=== PATIENT | female | born 1965 | race Caucasian/White ===

== ENCOUNTER 2017-01-02 07:13 | Emergency (ER) | payer OTHER ==
[2017-01-02 07:28] VITALS: BP 138/74; PULSE 85; TEMP 98.2; BMI 19.6
--- NOTE | 2017-01-02 07:59 | PDOC ---
History of Present Illness - General Chief Complaint: Cold Symptoms Stated Complaint: COUGHING/CONGESTION IN HEAD Time Seen by Provider: 01/02/17 07:37 History Source: Patient Exam Limitations: No Limitations - History of Present Illness Initial Comments: 01/02/17 07:54 51-year-old female otherwise healthy presents to the ED with complaints of nasal congestion, cough, sore throat, thick mucus, and difficulty breathing secondary to mucus for the past 3 days. Patient denies fever, chills, shortness of breath, change in appetite, change in activity. Patient denies recent travel , recent sick contacts. Patient denies smoking history. Timing/Duration: reports: other (3 days) Possible Cause: Yes: no prior episodes Associated Symptoms: reports: cough, nasal congestion, sore throat Past History - Past Medical History Allergies/Adverse Reactions: Allergies Allergy/AdvReac Type Severity Reaction Status Date / Time No Known Allergies Allergy Verified 01/02/17 07:21 Home Medications: Ambulatory Orders Albuterol Sulfate Inhaler - [Ventolin HFA Inhaler -] 1 - 2 inh PO Q4H PRN #1 inhaler 01/02/17 Azithromycin [Zithromax Tri-Rafael (3 DAYS) -] 500 mg PO DAILY #3 tablet 01/02/17 Fluticasone Prop 0.05% Nasal [Flonase -] 1 - 2 spray NS BID #1 spray.pump - Surgical History Abdominal Surgery: (uterine polyp removed) - Psycho/Social/Smoking Cessation Hx Suicidal Ideation: No Smoking History: Never smoked Information on smoking cessation initiated: No Hx Alcohol Use: No Drug/Substance Use Hx: No Substance Use Type: None Patient Lives Alone: No Respiratory Specific PMHX - Complaint Specific PMHX Bronchitis: No Pneumonia: No Review of Systems - Review of Systems Able to Perform ROS?: Yes Constitutional: No: Symptoms Reported HEENTM: Yes: Nose Congestion, Throat Pain Respiratory: Yes: Cough, Productive cough (yellowish phlegm) Cardiac (ROS): No: Symptoms Reported ABD/GI: No: Symptoms Reported Integumentary: No: Symptoms Reported Neurological: No: Headache *Physical Exam - Vital Signs Last Vital Signs Temp Pulse Resp BP Pulse Ox 98.2 F 85 18 138/74 97 01/02/17 07:20 01/02/17 07:20 01/02/17 07:20 01/02/17 07:20 01/02/17 07:20 - Physical Exam General Appearance: Yes: Nourished, Appropriately Dressed. No: Apparent Distress HEENT: positive: EOMI, KATIE, TMs Normal, Pharynx Normal, Nasal Congestion ( boggy and edematous turbinates bilateral). negative: Rhinorrhea, Sinus Tenderness Neck: positive: Supple. negative: Lymphadenopathy (R), Lymphadenopathy (L) Respiratory/Chest: positive: Lungs Clear, Normal Breath Sounds. negative: Respiratory Distress, Accessory Muscle Use Cardiovascular: positive: Regular Rhythm, Regular Rate. negative: Murmur Integumentary: positive: Normal Color, Warm, Moist Neurologic: positive: Motor Strength 5/5 (ambulatory) Medical Decision Making - Medical Decision Making 01/02/17 07:56 Patient with URI symptoms concerning for bronchitis versus nasal congestion. Patient will be given medication for both. Patient also be recommended to take Claritin for nasal congestion and [id number] Robitussin or Mucinex for cough control and to break up secretions. *DC/Admit/Observation/Transfer Diagnosis at time of Disposition: Nasal congestion, Bronchitis - Discharge Dispostion Disposition: HOME Condition at time of disposition: Good - Prescriptions Prescriptions: Fluticasone Prop 0.05% Nasal [Flonase -] 1 - 2 spray NS BID #1 spray.pump Albuterol Sulfate Inhaler - [Ventolin HFA Inhaler -] 1 - 2 inh PO Q4H PRN #1 inhaler PRN Reason: Wheezing Azithromycin [Zithromax Tri-Rafael (3 DAYS) -] 500 mg PO DAILY #3 tablet - Patient Instructions Printed Discharge Instructions: DI for Nasal Congestion, DI for Cough -- Adult , DI for Acute Bronchitis Additional Instructions: Please drink plenty of fluids. Keep nasal passages clear. May take Motrin or Tylenol if you develop discomfort or fever. Please use [id number] Robitussin or Mucinex for cough control. You may also take Claritin 10 mg if the nasal spray is not sufficient for nasal congestion. Otherwise take medication as I prescribed to you.
== END 2017-01-02 08:01 | disposition home or self-care (01) ==
LOC: JER 07:13
DX: J40 Bronchitis, not specified as acute or chronic (principal)
CPT/HCPCS: 99282-25

== ENCOUNTER 2024-08-02 16:52 | Inpatient (IN) | payer OTHER ==
[2024-08-02 17:56] LABS: VENOUS BASE EXCESS 2.4 mmol/L (-2-2); VENOUS O2 SATURATION 38.2 % (70-80); VENOUS PCO2 42.9 mmHg (38-52); VENOUS PH 7.421 (7.310-7.410)
[2024-08-02 18:02] LABS: HEMATOCRIT 41.4 % (32.4-45.2); HEMOGLOBIN 14.3 GM/dL (10.7-15.3); MCHC 34.5 g/dl (32.0-36.0); MEAN CELL VOLUME 95.8 fl (80-96); MEAN PLT VOLUME 9.4 fl (7.5-11.1); PLATELET COUNT 315 10^3/uL (134-434); RBC 4.32 M/mm3 (3.60-5.2); RDW 17.8 % (11.6-15.6); WHITE BLOOD COUNT 7.1 K/mm3 (4.0-10.0)
[2024-08-02 18:23] LABS: INR 1.3 (0.83-1.09); PROTHROMBIN TIME (PATIENT) 14.6 SEC (9.7-13.0)
[2024-08-02 18:26] LABS: ACTIVATED PTT 28.5 SECONDS (25.2-36.5)
[2024-08-02 18:28] LABS: POTASSIUM 5.7 mmol/L (3.5-5.1)
[2024-08-02 18:29] LABS: CALCIUM 10.4 mg/dL (8.5-10.1)
[2024-08-02 18:30] LABS: BLOOD UREA NITROGEN 20.7 mg/dL (7-18); MAGNESIUM 2.5 mg/dL (1.8-2.4)
[2024-08-02 18:33] LABS: CREATININE 0.9 mg/dL (0.55-1.3)
[2024-08-02 18:35] LABS: BILIRUBIN,TOTAL 10.5 mg/dL (0.2-1); TOT PROT 6.6 g/dl (6.4-8.2)
[2024-08-02] MEDS ORDERED: oxyCODONE HCL 5 MG TABLET ONE (18:37)
[2024-08-02 18:38] LABS: N-TERMINAL BNP 296.7 pg/ml (5-125)
[2024-08-02] MEDS: oxyCODONE HCL 5 MG TABLET PO ONE (18:42)
[2024-08-02 18:57] LABS: ANISOCYTOSIS 3+; MACROCYTOSIS 3+
[2024-08-02] MEDS ORDERED: oxyCODONE HCL 5 MG TABLET PO PRN ×2 (20:10→22:38)
[2024-08-02 20:18] LABS: POTASSIUM 5.4 mmol/L (3.5-5.1)
[2024-08-02 20:20] LABS: BLOOD UREA NITROGEN 19.9 mg/dL (7-18); CALCIUM 9.9 mg/dL (8.5-10.1)
[2024-08-02 20:24] LABS: CREATININE 0.8 mg/dL (0.55-1.3)
[2024-08-02] MEDS ORDERED: MORPHINE SULFATE 2 MG/ML SYRINGE IVPUSH PRN ×2 (20:36→22:38)
[2024-08-02] MEDS ORDERED: ONDANSETRON 4 MG/2 ML VIAL IVPUSH PRN (20:48)
[2024-08-02] MEDS ORDERED: GLYCERIN 1 RECTAL SUPPOSITORY, ADULT RC PRN (21:25)
[2024-08-02] MEDS ORDERED: HYDROmorphone HCl 2 MG/ML VIAL ONE (21:30)
[2024-08-02] MEDS: HYDROmorphone HCl 2 MG/ML VIAL IVPUSH ONE (21:34)
[2024-08-02] MEDS ORDERED: LACTULOSE 20 GM/30 ML UDC (FOR ORAL USE ONLY) PO SCH (22:00)
[2024-08-03] MEDS: DOCUSATE NA 100 MG/10 ML UNIT-DOSE CUPS PO SCH (00:59)
[2024-08-03] MEDS: ENOXAPARIN NA (PORCINE) 40 MG/0.4 ML DISP.SYRIN SQ SCH (01:00)
[2024-08-03 05:15] VITALS: RESP 18
[2024-08-03] MEDS ORDERED: HYDROmorphone HCl 2 MG/ML VIAL IVPUSH PRN (06:05)
[2024-08-03] MEDS ORDERED: HYDROmorphone HCL 2 MG TABLET PO PRN (11:40)
[2024-08-03] MEDS: HYDROmorphone HCl 2 MG/ML VIAL IVPUSH PRN (13:08)
[2024-08-03 14:07] VITALS: BMI 21.4
[2024-08-03] MEDS: GLYCERIN 1 RECTAL SUPPOSITORY, ADULT RC SCH (14:43)
[2024-08-04] MEDS: LORazepam 2 MG/ML SDV VIAL IVPUSH PRN (01:10)
[2024-08-04] MEDS ORDERED: FENTANYL PATCH WASTE TD PRN (10:45)
[2024-08-04] MEDS ORDERED: DOCUSATE SODIUM 100 MG CAPSULE (FP) PO PRN (10:45)
[2024-08-04] MEDS ORDERED: HYDROmorphone HCL 2 MG TABLET PO PRN (10:46)
[2024-08-04] MEDS: fentaNYL 12mcg/hr PATCH.TD72 TD SCH (13:51)
[2024-08-05 14:40] VITALS: TEMP 97.5
[2024-08-06 07:11] VITALS: BP 119/68; PULSE 90
== END 2024-08-06 12:19 | disposition home or self-care (01) | DRG 186 ==
LOC: JER 16:52 → JERBED 19:02 → J8W 23:50
PROVIDERS: ADMIT Internal Medicine; ATTEND Nurse Practitioner Acute Care
DX: J90 Pleural effusion, not elsewhere classified (principal); E43 Unspecified severe protein-calorie malnutrition; C78.7 Secondary malignant neoplasm of liver and intrahepatic bile duct; C79.51 Secondary malignant neoplasm of bone; G89.29 Other chronic pain; R26.81 Unsteadiness on feet; M54.9 Dorsalgia, unspecified; E87.70 Fluid overload, unspecified; E80.6 Other disorders of bilirubin metabolism; R14.0 Abdominal distension (gaseous); C50.911 Malignant neoplasm of unspecified site of right female breast; E87.5 Hyperkalemia; E83.52 Hypercalcemia; E83.41 Hypermagnesemia; Z68.21 Body mass index [BMI] 21.0-21.9, adult; Z51.5 Encounter for palliative care
CPT/HCPCS: 0241U-QW; 36415; 71045-TC-FY; 80048; 80053; 82803; 83735; 83880; 84484; 85025; 85610; 85730; 86850; 86900; 86901; 97116-GP; 97161-GP; 99285-25